=== PATIENT | female | born 1965 | race Caucasian/White ===

== ENCOUNTER 2020-02-09 09:27 | Inpatient (IN) | payer MEDICAID, OTHER ==
--- NOTE | 2020-02-09 09:44 | ED ---
Psych HPI - General Chief Complaint: Psychiatric Symptoms Stated Complaint: EPS eval Time Seen by Provider: 02/09/20 09:34 Source: patient, EMS, RN notes reviewed, old records reviewed Mode of arrival: EMS - History of Present Illness Initial Comments: 54-year-old female who was brought in by EMS after presenting to [facility] for help she talks about bad wiring her house and walking on the streets. She has demonstrated flight of ideas she denies any suicidal thought or ideation and alcohol or drugs. She is a smoker MD Complaint: other - Related Data Home Medications Medication Instructions Recorded Confirmed Acetaminophen Tab [Tylenol Tab] 500 - 1,000 mg PO Q6H PRN 02/09/20 02/09/20 Multivitamins, Thera [Multivitamin 1 tab PO DAILY 02/09/20 02/09/20 (formulary)] Allergies Allergy/AdvReac Type Severity Reaction Status Date / Time aspirin AdvReac Stomach Verified 02/09/20 10:13 pain Review of Systems ROS Statement: Those systems with pertinent positive or pertinent negative responses have been documented in the HPI. ROS Other: All systems not noted in ROS Statement are negative. Past Medical History Past Medical History: No Reported History History of Any Multi-Drug Resistant Organisms: None Reported Past Surgical History: Section Past Psychological History: No Psychological Hx Reported Smoking Status: Current every day smoker Past Alcohol Use History: None Reported Past Drug Use History: None Reported General Exam - General Exam Comments Initial Comments: this is a well-developed asthenic appearing female who is awake alert oriented 3 Limitations: no limitations General appearance: alert, in no apparent distress Head exam: Present: atraumatic, normocephalic, normal inspection Eye exam: Present: normal appearance, PERRL, EOMI. Absent: scleral icterus, conjunctival injection, periorbital swelling ENT exam: Present: normal exam, mucous membranes moist Neck exam: Present: normal inspection, full ROM. Absent: tenderness, meningismus, lymphadenopathy Respiratory exam: Present: normal lung sounds bilaterally. Absent: respiratory distress, wheezes, rales, rhonchi, stridor Cardiovascular Exam: Present: regular rate, normal rhythm, normal heart sounds. Absent: systolic murmur, diastolic murmur, rubs, gallop, clicks GI/Abdominal exam: Present: soft, normal bowel sounds. Absent: distended, tenderness, guarding, rebound, rigid Extremities exam: Present: normal inspection, full ROM, normal capillary refill. Absent: tenderness, pedal edema, joint swelling, calf tenderness Back exam: Present: normal inspection Neurological exam: Present: alert, oriented X3, CN II-XII intact Psychiatric exam: Present: flat affect Skin exam: Present: warm, dry, intact, normal color. Absent: rash Course Vital Signs 02/09/20 09:33 Temperature 98.5 F Pulse Rate 106 H Respiratory 18 Rate Blood Pressure 143/77 O2 Sat by Pulse 100 Oximetry Medical Decision Making - Medical Decision Making the patient was evaluated by psychiatric service and will be admitted - Lab Data Lab Results 02/09/20 Range/Units 09:48 Urine Opiates Screen Not Detected (NotDetected) Ur Oxycodone Screen Not Detected (NotDetected) Urine Methadone Screen Not Detected (NotDetected) Ur Propoxyphene Screen Not Detected (NotDetected) Ur Barbiturates Screen Not Detected (NotDetected) U Tricyclic Antidepress Not Detected (NotDetected) Ur Phencyclidine Scrn Not Detected (NotDetected) Ur Amphetamines Screen Not Detected (NotDetected) U Methamphetamines Scrn Not Detected (NotDetected) U Benzodiazepines Scrn Not Detected (NotDetected) Urine Cocaine Screen Not Detected (NotDetected) U Marijuana (THC) Screen Detected H (NotDetected) Disposition Clinical Impression: Acute psychosis Disposition: TRANSFER TO PSYCH HOSP/UNIT Condition: Fair Referrals: None,Stated [Primary Care Provider] - 1-2 days
[2020-02-09 10:07] LABS: Amphetamine Screen,Urine Not Detected (NotDetected); Barbiturate Screen,Urine Not Detected (NotDetected); Benzodiazepines Screen,Urine Not Detected (NotDetected); Cocaine Screen,Urine Not Detected (NotDetected); Methadone Screen, Urine Not Detected (NotDetected); Opiate Screen,Urine Not Detected (NotDetected); Oxycodone Screen, Urine Not Detected (NotDetected); Phencyclidine Screen,Urine Not Detected (NotDetected); Tricyclic Antidepressant,Urine Not Detected (NotDetected); Urn Cannabinoid Scrn Detected (NotDetected)
[2020-02-09] MEDS ORDERED: ZIPRASIDONE 20 MG VIAL IM PRN (15:20)
[2020-02-09] MEDS ORDERED: LORazepam 1 MG TAB PO PRN (15:20)
[2020-02-09] MEDS ORDERED: MAGNESIUM HYDROXIDE 2,400 MG/10 ML CUP PO PRN (15:20)
[2020-02-09] MEDS ORDERED: MAG HYDROX/AL HYDROX/SIMETH 30 ML CUP PO PRN (15:20)
[2020-02-09] MEDS ORDERED: ACETAMINOPHEN TAB 325 MG TAB PO PRN (15:20)
[2020-02-09] MEDS ORDERED: LORazepam 2 MG/ML INJ IM PRN (15:21)
[2020-02-09] MEDS: NICOTINE 14MG/24HR PATCH TRANSDERM SCH (19:12)
--- NOTE | 2020-02-10 03:45 | P.CONS ---
History of Present Illness - Reason for Consult Consult date: 02/10/20 - History of Present Illness The patient is a 54-year-old female who presented to the emergency room with flight of ideas along with suicidal ideation. The patient was admitted to the mental health unit where she was seen and evaluated. The patient seems to be internally preoccupied during the interview and was unable to provide a thorough history and answering questions appropriately. The patient however denied acti ve complaints. She denied chest pain, shortness of breath, fever, chills, nausea, vomiting, abdominal pain. Urine toxicology was positive for marijuana in the emergency room. Review of Systems Pertinent positives and negatives as discussed in HPI, a complete review of systems was performed and all other systems are negative. Past Medical History Past Medical History: No Reported History History of Any Multi-Drug Resistant Organisms: None Reported Past Surgical History: Section Past Psychological History: No Psychological Hx Reported Smoking Status: Current every day smoker Past Alcohol Use History: None Reported Past Drug Use History: None Reported Medications and Allergies Home Medications Medication Instructions Recorded Confirmed Type Acetaminophen Tab [Tylenol Tab] 500 - 1,000 mg PO Q6H PRN 02/09/20 02/09/20 History Multivitamins, Thera [Multivitamin 1 tab PO DAILY 02/09/20 02/09/20 History (formulary)] Allergies Allergy/AdvReac Type Severity Reaction Status Date / Time aspirin AdvReac Stomach Verified 02/09/20 10:13 pain Physical Exam Vitals: Vital Signs Temp Pulse Pulse Resp BP BP Pulse Ox 02/09/20 16:08 97.4 F L 88 18 119/99 94 L 02/09/20 09:33 98.5 F 106 H 18 143/77 100 Intake and Output 02/09/20 02/09/20 02/10/20 14:59 22:59 06:59 Other: Weight 63.503 kg 58.7 kg General: non toxic, no distress, appears at stated age, normal weight Derm: no unusual rashes/lesions no unusual ecchymoses, warm, dry Head: atraumatic, normocephalic, symmetric Eyes: EOMI, no lid lag, anicteric sclera, pupils equal round reactive to light ENT: Nose and ears atraumatic, no thrush, no pharyngeal erythema Neck: No thyromegaly, no cervical lymphadenopathy, trachea midline, supple Mouth: no lip lesion, mucus membranes moist Cardiovascular: S1S2 reg, no murmur, positive posterior tibial pulse bilateral, no edema, capillary refill less than 2 seconds Lungs: CTA bilateral, no rhonchi, no rales , no accessory muscle use Abdominal: soft, nontender to palpation, no guarding, no appreciable organomegaly, normal bowel sounds Ext: no gross muscle atrophy, muscle strength 5 out of 5 in all 4 extremities grossly, no contractures, Neuro: CN II-XI grossly intact, light touch intact all 4 extremities, finger to nose within normal limits, Psych: Alert, oriented, internally preoccupied with flight of ideas Results Labs: Abnormal Lab Results - Last 24 Hours (Table) 02/09/20 Range/Units 09:48 U Marijuana (THC) Screen Detected H (NotDetected) Assessment and Plan Plan: Psychosis -As per psychiatry Marijuana abuse -Advised patient on the importance of cessation Thank you for allowing us to participate in the care of this patient. We will f joanna peripherally. Do not hesitate to contact us with questions. Someone can be reached from the [facility] hospitalist group at all hours of the day at [phone].
[2020-02-10 07:45] LABS: Basophils # (A) 0.2 k/uL (0-0.2); Basophils % (A) 1 %; Eosinophils # (A) 0.2 k/uL (0-0.7); Eosinophils % (A) 1 %; HCT 50.9 % (34.0-46.0); HGB 16.5 gm/dL (11.4-16.0); Lymphocytes # (A) 3.1 k/uL (1.0-4.8); Lymphocytes % (A) 23 %; MCH 30.1 pg (25.0-35.0); MCHC 32.4 g/dL (31.0-37.0); MCV 92.7 fL (80.0-100.0); Mean Platelet Volume 6.4; Monocytes # (A) 0.6 k/uL (0-1.0); Monocytes % (A) 5 %; Neutrophils # (A) 9.2 k/uL (1.3-7.7); Neutrophils % (A) 69 %; Platelet Count 430 k/uL (150-450); RBC 5.49 m/uL (3.80-5.40); RDW 13.1 % (11.5-15.5); WBC 13.5 k/uL (3.8-10.6)
[2020-02-10 07:55] LABS: ALT 19 U/L (4-34); African American GFR (CKD) >90 (>60 ml/min/1.73 sqM); Albumin 4.7 g/dL (3.5-5.0); Anion Gap 10 mmol/L; Blood Urea Nitrogen 16 mg/dL (7-17); Calcium 9.7 mg/dL (8.4-10.2); Carbon Dioxide 26 mmol/L (22-30); Chloride 106 mmol/L (98-107); Cholesterol 173 mg/dL (<200); Glucose 82 mg/dL (74-99); HDL Cholesterol 38 mg/dL (40-60); LDL Cholesterol,Calculated 105 mg/dL (0-99); Non-African American GFR(CKD) >90 (>60 ml/min/1.73 sqM); Sodium 142 mmol/L (137-145); Total Protein 8.2 g/dL (6.3-8.2); Triglycerides 149 mg/dL (<150)
[2020-02-10 08:00] LABS: AST 32 U/L (14-36); Alkaline Phosphatase 91 U/L (38-126)
[2020-02-10] MEDS: NICOTINE 14MG/24HR PATCH TRANSDERM SCH (09:43)
[2020-02-10] MEDS: MULTIVITAMINS, THERA 1 EACH TAB PO SCH (09:43)
[2020-02-10] MEDS ORDERED: traZODone HCL 50 MG TAB PO PRN (10:19)
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
[2020-02-10 16:00] LABS: Hemoglobin A1C 5.3 % (4.0-6.0)
[2020-02-10] MEDS ORDERED: PALIPERIDONE 3 MG TAB.ER.24 PO SCH (21:00)
[2020-02-10 22:24] LABS: Appearance,Urine Cloudy (Clear); Bacteria,Urine Rare /hpf; Bilirubin,Urine Negative (Negative); Blood,Urine Moderate (Negative); Calcium Oxalate Crystals,Urine Occasional /hpf; Color,Urine Yellow; Glucose,Urine (UA) Negative (Negative); Hyaline Casts,Urine 3 /lpf (0-2); Ketones,Urine 1+ (Negative); Leukocyte Esterase,Urine Large (Negative); Mucus,Urine Moderate /hpf; Nitrite,Urine Negative (Negative); PH, Urine 5.5 (5.0-8.0); Protein,Urine Trace (Negative); RBC,Urine 6 /hpf (0-5); Specific Gravity,Urine 1.032 (1.001-1.035); Squamous Epithelial Cell,Urine 8 /hpf (0-4); Urobilinogen,Urine <2.0 mg/dL (<2.0); WBC,Urine 4 /hpf (0-5)
[2020-02-11] MEDS: NICOTINE 14MG/24HR PATCH TRANSDERM SCH (08:39)
[2020-02-11] MEDS: MULTIVITAMINS, THERA 1 EACH TAB PO SCH (08:39)
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
[2020-02-11] MEDS: SULFAMETHOX-TMP 800-160MG 1 EACH TAB PO SCH (20:59)
[2020-02-12] MEDS ORDERED: PALIPERIDONE 3 MG TAB.ER.24 PO SCH (09:00)
[2020-02-12] MEDS: NICOTINE 14MG/24HR PATCH TRANSDERM SCH (09:02)
[2020-02-12] MEDS: MULTIVITAMINS, THERA 1 EACH TAB PO SCH (09:02)
[2020-02-12] MEDS: SULFAMETHOX-TMP 800-160MG 1 EACH TAB PO SCH ×2 (09:02→20:37)
--- NOTE | 2020-02-12 09:41 | P.PN ---
Progress Note - Text Progress Note Date: 02/12/20 I reviewed medical records ,did interview patient and case was discussed in treatment team . PHYSICALLY :started Bactrim for UTI Slept 6-7 hours , yesterday participated in one group ACCORDING TO AT STAFF NOTE:((Pt required increased verbal prompting to engage in activity. "Is this a trick? I don't want to say anything wrong or bad. We were just talking about this in the [place] and now we're in group talking about this.)) TODAY VITALS: Temp:98.7P;87,P:17,BP:133/72 PATIENT TOOK INVEGA THIS MORNING INTERVAL : Patient was walking in [place] and agreed to follow me to office ,delusional ,illogical and bizarre saying "You do not hear me ,I am not giving permission to anyone here to contact my family because I am worried about your safety ,they can hurt you",compliant with medications and denies side-effects Mental status exam: Patient was wearing hospital gown, poor hygiene ,unkept hyperverbal , circumstatial ,loose of association,t,paranoia ,suspicious , ,guarded and evasive ,denies any hallucinations but seems responding to internal cue,endorses persecutory delusion ,tangential ,denies any suicidal or homicidal ideation,insight and judgment are impaired ASSESSMENT :PSYCHOSIS NOS PLAN: Patient continues to meet criteria for inpatient psychiatric admission for symptom stabilization ,increase Invega 6 mg ,encourage groups participation ,SW on board for collateral information and discharge planning
[2020-02-13] MEDS: NICOTINE 14MG/24HR PATCH TRANSDERM SCH (08:50)
[2020-02-13] MEDS: PALIPERIDONE 6 MG TAB.ER.24 PO SCH (08:51)
[2020-02-13] MEDS: SULFAMETHOX-TMP 800-160MG 1 EACH TAB PO SCH ×2 (08:51→21:22)
[2020-02-13] MEDS: MULTIVITAMINS, THERA 1 EACH TAB PO SCH (08:51)
--- NOTE | 2020-02-13 11:54 | P.PN ---
Subjective Progress Note Date: 02/13/20 Principal diagnosis: PSYCHOSIS NOS SUBJECTIVE:I was better off without medications", (when I asked her to elaborate on what was better off) she became defensive, counter attacked and said, "you just have a way of making people more anxious." OBJECTIVE: Vital signs:temp97.5, HR 114, resp 14, blood pressure 128/63 Labs:none recent Staff report: She has been going to groups and needs prompting to participate but followed the subject and was able to identify coping skills. She was noted by staff to be anxious depressed quiet and keeps to herself, minimal ADL'S is paranoid and refuses to let staff contact family, low energy, denies suicidal or homicidal ideas but does not want to talk in any deapth. Medications:Invega 6 mg daily plus prn's Mental status:The patient is oriented x4 gait and station are normal eye contact poor evidence of responding to voices or delusions:none but she is too vague and seems to be covering up issues behaviour: did not want the door to the office shut even though it does have a window and sat as far as possible insight:none, "my stuff is not stuff doctors would understand" cognitive funtion:hard to assess affect:tense appearance:minimal self care dressed in hospital gown ASSESSMENT:still very guarded doing poorly but no acute side effects or medical complaints PLAN:no change Objective - Vital Signs Vital signs: Vital Signs Temp 97.5 F L 02/13/20 00:22 Pulse 114 H 02/13/20 00:22 Resp 14 02/13/20 00:22 BP 128/63 02/13/20 00:22 Pulse Ox 97 02/12/20 06:00 Intake & Output 02/12/20 02/13/20 02/13/20 18:59 06:59 18:59 Weight 59.8 kg - Labs CBC & Chem 7: 02/10/20 07:27 02/10/20 07:27 Labs: Microbiology - Last 24 Hours (Table) 02/10/20 21:25 Urine Culture - Final Urine,Voided
[2020-02-14] MEDS: MULTIVITAMINS, THERA 1 EACH TAB PO SCH (08:52)
[2020-02-14] MEDS: NICOTINE 14MG/24HR PATCH TRANSDERM SCH (08:52)
[2020-02-14] MEDS: PALIPERIDONE 6 MG TAB.ER.24 PO SCH (08:52)
[2020-02-14] MEDS: SULFAMETHOX-TMP 800-160MG 1 EACH TAB PO SCH ×2 (08:52→22:02)
--- NOTE | 2020-02-14 14:21 | P.PN ---
Subjective Progress Note Date: 02/14/20 Principal diagnosis: PSYCHOSIS NOS SUBJECTIVE:She is so vague that it is hard to be sure but she is complaining that the invega causes her to be more anxiious around people and tired at the same time. OBJECTIVE: Vital signs: temp 98.5 resp 16 heart rate 84 blood pressure 112/63 Labs:none recent STAFF REPORT:group report: she does not attend on the unit they notice her as bizarre suspicious, anxious soft spoken but redirectable but withdrawn from peers. MENTAL STATUS: Appearance: basic ADL'S adequate Gait and station:normal Speech:normal in rate and volume Eye contact: good Behavior: cooperative Affect:flat No evidence or acknowlegment of voices or delusions Orientation: good to person place and time MEDICATIONS:invega 6 mg daily ASSESSMENT:patient is cooperative and still too anxious and confused. She might be having akathesia but sits for quite a while in my office without moving, in fact she almost has decreased psychomotor activity PLAN: no change but if she continues to complain of "restlessness and anxiety" we might have to change the invega. Objective - Vital Signs Vital signs: Vital Signs Temp 98.5 F 02/14/20 13:05 Pulse 84 02/14/20 05:59 Resp 16 02/14/20 05:59 BP 112/63 02/14/20 05:59 Pulse Ox 95 02/14/20 05:59 Intake & Output 02/13/20 02/14/20 02/14/20 19:59 06:59 18:59 Weight 59.8 kg - Labs CBC & Chem 7: 02/10/20 07:27 02/10/20 07:27
[2020-02-15] MEDS: SULFAMETHOX-TMP 800-160MG 1 EACH TAB PO SCH ×2 (08:30→22:02)
[2020-02-15] MEDS: PALIPERIDONE 6 MG TAB.ER.24 PO SCH (08:30)
[2020-02-15] MEDS: NICOTINE 14MG/24HR PATCH TRANSDERM SCH (08:30)
[2020-02-15] MEDS: MULTIVITAMINS, THERA 1 EACH TAB PO SCH (08:30)
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
[2020-02-16 04:29] VITALS: RESP 16
[2020-02-16] MEDS: NICOTINE 14MG/24HR PATCH TRANSDERM SCH (08:44)
[2020-02-16] MEDS: SULFAMETHOX-TMP 800-160MG 1 EACH TAB PO SCH ×2 (08:44→21:23)
[2020-02-16] MEDS: MULTIVITAMINS, THERA 1 EACH TAB PO SCH (08:44)
[2020-02-16] MEDS: PALIPERIDONE 6 MG TAB.ER.24 PO SCH (08:44)
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
[2020-02-17] MEDS: NICOTINE 14MG/24HR PATCH TRANSDERM SCH (09:00)
[2020-02-17] MEDS: SULFAMETHOX-TMP 800-160MG 1 EACH TAB PO SCH ×2 (09:00→21:02)
[2020-02-17] MEDS: MULTIVITAMINS, THERA 1 EACH TAB PO SCH (09:00)
[2020-02-17] MEDS: PALIPERIDONE 6 MG TAB.ER.24 PO SCH (09:01)
--- NOTE | 2020-02-17 11:19 | P.PN ---
Progress Note - Text Progress Note Date: 02/17/20 Clinical Problems: Unspecified psychotic disorder, rule out depressive disorder, rule out unspecified major neurocognitive disorder, rule out schizoaffective disorder Interim history: I reviewed the medical record, interviewed the patient and discussed her treatment and treatment plan during team meeting. She signed a three-day notice yesterday and talked about her desire to be discharged. During our interview, she again refuse to sign a release for information to speak with her nephew. However, after interview the oil well service unit operator approached her with the same request and she signed a release of information form. She denied conflict her concerns with her nephew. She would not talk about to believe she expressed of admission i.e. he was poisoning her. mechanical maintenance worker plans to speak with her nephew to gain collateral information and to complete discharge planning. Mental status exam: She presented as a thin elderly woman who looked older than her stated age. Her hair was long disheveled. She has very poor dentition. She made eye contact and appeared to attend to the interview. She had slight psychomotor retardation but no abnormal movements. Her speech was spontaneous, soft with decreased rhythm. Her affect was anxious and suspicious. She denied suicidal ideation and wishes. She denied homicidal ideation. She did not express clear ideas reference, paranoid ideation or delusions. Her thinking was very concrete but her associations were goal-directed. She denied hallucinations did not appear to responding to internal stimuli. Assessment: She is less guarded, suspicious and paranoid than on admission. Plan: Continue inpatient treatment until at least the nephrology social worker is able to speak with her nephew and obtain some collateral information. If there are no concerns about safety then we can discharge her home. Encourage continued compliance with Invega 6 mg daily. Social work to coordinate aftercare services most likely through community mental health.
[2020-02-17 18:47] VITALS: TEMP 98.2
[2020-02-18] MEDS ORDERED: PALIPERIDONE 3 MG TAB.ER.24 PO SCH (09:00)
[2020-02-18] MEDS: NICOTINE 14MG/24HR PATCH TRANSDERM SCH (10:08)
[2020-02-18] MEDS: MULTIVITAMINS, THERA 1 EACH TAB PO SCH (10:09)
[2020-02-18] MEDS: SULFAMETHOX-TMP 800-160MG 1 EACH TAB PO SCH (10:19)
--- NOTE | 2020-02-18 11:34 | P.PN ---
Progress Note - Text Progress Note Date: 02/18/20 Clinical Problems: Unspecified psychotic disorder, rule out depressive disorder, rule out unspecified major neurocognitive disorder, rule out schizoaffective disorder Interim history: I reviewed the medical record, interviewed the patient and discuss her treatment and treatment plan during team meeting. textile pin worker was able to speak with her nephew yesterday. He stated that he filed a missing persons report because Dodie F the house and he was unable to locate her over the last 8 days. After she left the house he cleaned her room and thought he had discovered bedbugs. He has arranged to have the house fumigated today. Dodie appeared surprised when I relayed the social science research assistant's conversation with her nephew. She alleged that she did not believe her nephew cared for her and wanted her to move out of the house. She then talked about her belief that her nephew was trying to harm her. She described a delusional belief that there was a contamination and heating ducts of house that was affecting her thinking and her health. We talked about her noncompliance with paliperidone. She expressed concern about being able to pay for the medication when she leaves and also complained of side effects with the 6 mg dose. We discussed options and she agreed to take risperidone at a "lower dose". She does not attend therapeutic groups and activities. She does not interact with peers. She spends most for time alone in her room. Mental status exam: She presented as a thin and frail-appearing elderly woman who looks older than his stated age. She had long care that she had combed today. She is wearing casual street clothes. She made eye contact and appeared to attend to the interview. Her affect was blunted but bright and expressive. Her speech was spontaneous. She expressed suicidal homicidal ideation. She described a fixed paranoid delusional belief as described above. She did not appear paranoid or suspicious during our encounter. She denied experiencing auditory hallucinations and didn't appear to be responding to internal stimuli. Assessment: She is less paranoid than on admission and is more open about discussing her paranoid delusional beliefs. Plan: Discharge on 02/19/2020 after her home is fumigated for bedbugs discontinue paliperidone 6 mg daily and began risperidone 1 mg at bedtime and titrated according to clinical response and tolerance. Continue trazodone 50 mg at bedtime when necessary for sleep. textile pin worker to coordinate discharge and aftercare. Encourage participation in therapeutic groups and activities. Evaluate clinical status response to treatment daily basis.
[2020-02-18] MEDS ORDERED: risperiDONE 1 MG TAB PO SCH (21:00)
[2020-02-19 06:28] VITALS: BP 103/54; PULSE 62
[2020-02-19] MEDS: MULTIVITAMINS, THERA 1 EACH TAB PO SCH (08:51)
[2020-02-19] MEDS: NICOTINE 14MG/24HR PATCH TRANSDERM SCH (08:51)
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
[2020-02-19 12:59] VITALS: BMI 24.0
== END 2020-02-19 15:30 | disposition home or self-care (01) | DRG 897 ==
LOC: EC 09:27 → 3MHU 15:02
PROVIDERS: ADMIT Psychiatry & Neurology Psychiatry; ATTEND Psychiatry & Neurology Psychiatry
DX: F12.950 Cannabis use, unspecified with psychotic disorder with delusions (principal); N39.0 Urinary tract infection, site not specified; F17.200 Nicotine dependence, unspecified, uncomplicated; Z88.8 Allergy status to other drugs, medicaments and biological substances; Z98.891 History of uterine scar from previous surgery; Z56.0 Unemployment, unspecified; Z91.19 Patient's noncompliance with other medical treatment and regimen; Z91.5 Personal history of self-harm
CPT/HCPCS: 80053; 80061; 80306; 81001; 82075; 83036; 84443; 85025; 87086; 99285

== ENCOUNTER 2020-04-04 15:30 | Inpatient (IN) | payer MEDICAID, OTHER ==
[2020-04-04 18:09] LABS: Amphetamine Screen,Urine Not Detected (NotDetected); Barbiturate Screen,Urine Not Detected (NotDetected); Benzodiazepines Screen,Urine Not Detected (NotDetected); Cocaine Screen,Urine Not Detected (NotDetected); Methadone Screen, Urine Not Detected (NotDetected); Opiate Screen,Urine Not Detected (NotDetected); Oxycodone Screen, Urine Not Detected (NotDetected); Phencyclidine Screen,Urine Not Detected (NotDetected); Tricyclic Antidepressant,Urine Not Detected (NotDetected); Urn Cannabinoid Scrn Not Detected (NotDetected)
[2020-04-04] MEDS ORDERED: ACETAMINOPHEN TAB 500 MG TAB PO PRN (18:43)
[2020-04-04] MEDS ORDERED: traZODone HCL 50 MG TAB PO PRN (18:43)
[2020-04-04] MEDS ORDERED: LORazepam 1 MG TAB PO PRN (18:44)
[2020-04-04] MEDS ORDERED: MAGNESIUM HYDROXIDE 2,400 MG/10 ML CUP PO PRN (18:44)
[2020-04-04] MEDS ORDERED: MAG HYDROX/AL HYDROX/SIMETH 30 ML CUP PO PRN (18:44)
[2020-04-04] MEDS ORDERED: haloperidoL 5 MG TAB PO PRN (18:45)
[2020-04-04] MEDS ORDERED: LORazepam 2 MG/ML INJ IM PRN (18:45)
[2020-04-04] MEDS ORDERED: HALOPERIDOL LACTATE 5 MG/ML 1 ML VIAL IM PRN (18:45)
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
[2020-04-04] MEDS ORDERED: risperiDONE 1 MG TAB PO SCH (21:00)
[2020-04-05] MEDS: MULTIVITAMINS, THERA 1 EACH TAB PO SCH (08:32)
[2020-04-05] MEDS: NICOTINE 14MG/24HR PATCH TRANSDERM SCH ×2 (08:32)
[2020-04-05 10:50] LABS: Basophils # (A) 0.1 k/uL (0-0.2); Basophils % (A) 1 %; Eosinophils # (A) 0.1 k/uL (0-0.7); Eosinophils % (A) 1 %; HCT 43.6 % (34.0-46.0); HGB 14.6 gm/dL (11.4-16.0); Lymphocytes # (A) 1.9 k/uL (1.0-4.8); Lymphocytes % (A) 17 %; MCH 29.8 pg (25.0-35.0); MCHC 33.6 g/dL (31.0-37.0); MCV 88.8 fL (80.0-100.0); Mean Platelet Volume 6.7; Monocytes # (A) 0.6 k/uL (0-1.0); Monocytes % (A) 5 %; Neutrophils # (A) 8.5 k/uL (1.3-7.7); Neutrophils % (A) 76 %; Platelet Count 397 k/uL (150-450); RBC 4.91 m/uL (3.80-5.40); RDW 12.7 % (11.5-15.5); WBC 11.2 k/uL (3.8-10.6)
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
[2020-04-05 11:15] LABS: ALT 16 U/L (4-34); AST 20 U/L (14-36); African American GFR (CKD) >90 (>60 ml/min/1.73 sqM); Albumin 4.4 g/dL (3.5-5.0); Alkaline Phosphatase 86 U/L (38-126); Anion Gap 7 mmol/L; Blood Urea Nitrogen 18 mg/dL (7-17); Calcium 9.8 mg/dL (8.4-10.2); Carbon Dioxide 27 mmol/L (22-30); Chloride 107 mmol/L (98-107); Cholesterol 166 mg/dL (<200); Glucose 93 mg/dL (74-99); HDL Cholesterol 42 mg/dL (40-60); LDL Cholesterol,Calculated 103 mg/dL (0-99); Non-African American GFR(CKD) >90 (>60 ml/min/1.73 sqM); Potassium 4.6 mmol/L (3.5-5.1); Sodium 141 mmol/L (137-145); Total Bilirubin 0.6 mg/dL (0.2-1.3); Total Protein 7.6 g/dL (6.3-8.2); Triglycerides 103 mg/dL (<150)
[2020-04-05] MEDS: risperiDONE 2 MG TAB PO SCH (21:27)
[2020-04-06] MEDS: NICOTINE 14MG/24HR PATCH TRANSDERM SCH (08:36)
[2020-04-06] MEDS: MULTIVITAMINS, THERA 1 EACH TAB PO SCH (08:36)
--- NOTE | 2020-04-06 11:53 | P.PN ---
Progress Note - Text Progress Note Date: 04/06/20 Clinical Problems: Unspecified psychotic disorder, unspecified neurocognitive disorder, rule out schizophrenia history of cannabis use, tobacco use Interim history: I reviewed the medical record, interviewed the patient and discussed her treatment and treatment plan during team meeting. She was apologetic and perseverative during the interview. She apologizes for the "trouble I caused." She perseverated on where she will live after she is discharged and appeared to be under the impression that we are reaching for her to live with her children. I explained that yesterday I talked to her about her children because we would like to speak with them to obtain additional information about her and their relationship. She did not know her children's telephone numbers and did not know their home address. She did not know the names some of her grandchildren. I clarified that her options; she could return to live with her nephew or to go to a homeless residential. Given this option she replied that she wouldn't refer to return to live with her nephew. She did not voluntarily express thoughts or beliefs about mistreatment, abuse or being harmed or poisoned. She declined Risperdal Consta considerably oral doses. Mental status exam: She presented as a thin casually groomed 54-year-old female who looked older than stated age. She made eye contact and appeared to attend to interview. She had a blunted facial expression. She was alert and oriented to person, place and time. She had psychomotor retardation but no abnormal movements. Her speech was spontaneous with normal rate and rhythm. Her affect was blunted but stable and appropriate. She denied suicidal ideation or wishes. She denied feeling hopeless and helpless or worthless. She ruminated about living with her nephew, having no income, not having a telephone, not being able to keep her nephew's telephone, not having transportation to keep her appointments and not knowing how to reach her children. She did not express ideas reference or paranoid ideation. She did not express magical ideation or delusional thoughts. Her thinking was very concrete and perseverative. She denied hallucinations and did not appear to be responding to internal stimuli. Assessment: She is less suspicious and confused and on admission. I suspect that this may be a neurocognitive disorder. Plan: Continue inpatient treatment. Safety precautions. Continue risperidone 2 mg at bedtime and titrated according to clinical response and tolerance. Trazodone 50 mg at bedtime when necessary for sleep. bag shop worker attempting to contact her nephew and obtain information to speak with her children. The plan is to her to return to live with her nephew. Encouraged continued participation in therapeutic groups and activities. Evaluate clinical status response to treatment daily basis.
[2020-04-06] MEDS: risperiDONE 2 MG TAB PO SCH (21:13)
[2020-04-07] MEDS: NICOTINE 14MG/24HR PATCH TRANSDERM SCH (08:59)
[2020-04-07] MEDS: MULTIVITAMINS, THERA 1 EACH TAB PO SCH (08:59)
--- NOTE | 2020-04-07 11:29 | P.PN ---
Progress Note - Text Progress Note Date: 04/07/20 Clinical Problems: Unspecified psychotic disorder, unspecified neurocognitive disorder, rule out schizophrenia history of cannabis use, tobacco use Interim history: I reviewed the medical record, interviewed the patient and discussed her treatment and treatment plan during team meeting. Dodie again expressed concerns about living with her nephew but recognizes that otherwise she has no options. She perseverated about the homes heating system; again talking about her concerns about the safety of the heating system and her nephew's refusal to have a heating and cooling inspection. plate put in worker obtained consent and spoke with her nephew yesterday. He expressed concerns about her medication compliance until geriatric social work professor that she only took her prescribed medication "for couple days." He also complained that she would not let him turn on the furnace. She has cardboard over the vents because she was thinking something was "coming out of the vents." He had to buy electric heaters to warm the house and complained about the exorbitant electric bill. Dodie talked around the issues brought up during the geriatric social work professor's conversation with her nephew. She would not admit that she believes that something is "coming out" of the furnace vents. She talked about her nephew wanting to move something but she thought it was too much (I suspect she was talking about the settings of the thermostat). She again declined Risperdal Consta. Mental status exam: She presented as a thin casually groomed 54-year-old female who looked older than stated age. She made eye contact and appeared to attend to interview. She had a blunted facial expression. She was alert and oriented to person, place and time. She had psychomotor retardation but no abnormal movements. Her speech was spontaneous with normal rate and rhythm. Her affect was blunted but stable and appropriate. She denied suicidal ideation or wishes. She denied feeling hopeless and helpless or worthless. She continued to ruminated about living with her nephew, having no income, not having a telephone, not being able to keep her nephew's telephone, not having transportation to keep her appointments and not knowing how to reach her children. She did not express ideas reference but remains paranoid about the homes furnace and heating system. She did not express clear paranoid delusional beliefs. Her thinking was very concrete and perseverative. She denied hallucinations and did not appear to be responding to internal stimuli. Assessment: She is less suspicious and confused and on admission. I suspect that her paranoia and paranoid beliefs may be related to an underlying neurocognitive disorder. Plan: Continue inpatient treatment. Safety precautions. Continue risperidone 2 mg at bedtime and titrated according to clinical response and tolerance. Trazodone 50 mg at bedtime when necessary for sleep. I would consider a memory enhancing agent if a little more confident and her compliance. Encouraged continued participation in therapeutic groups and activities. Evaluate clinical status response to treatment daily basis.
[2020-04-07] MEDS: risperiDONE 2 MG TAB PO SCH (20:52)
[2020-04-07 23:02] LABS: Amorphous Sediment,Urine Rare /hpf; Appearance,Urine Cloudy (Clear); Bilirubin,Urine Negative (Negative); Blood,Urine Small (Negative); Color,Urine Light Yellow; Glucose,Urine (UA) Negative (Negative); Ketones,Urine Negative (Negative); Leukocyte Esterase,Urine Small (Negative); Nitrite,Urine Negative (Negative); PH, Urine 6.5 (5.0-8.0); Protein,Urine Negative (Negative); RBC,Urine 2 /hpf (0-5); Specific Gravity,Urine 1.016 (1.001-1.035); Squamous Epithelial Cell,Urine <1 /hpf (0-4); Urobilinogen,Urine <2.0 mg/dL (<2.0); WBC,Urine 1 /hpf (0-5)
[2020-04-08] MEDS: NICOTINE 14MG/24HR PATCH TRANSDERM SCH (08:47)
[2020-04-08] MEDS: MULTIVITAMINS, THERA 1 EACH TAB PO SCH (08:47)
--- NOTE | 2020-04-08 09:28 | P.PN ---
Progress Note - Text Progress Note Date: 04/08/20 Clinical Problems: Unspecified psychotic disorder, unspecified neurocognitive disorder, rule out schizophrenia history of cannabis use, tobacco use Interim history: I reviewed the medical record and interviewed the patient. She remains concerned about returning to her nephew's house but recognizes that she has no other option. She gave several excuses for not being able to contact her children, apply for Social Security or make her community mental health appointments. She did not perseverate about the heating system at her nephew's house. He declined a trial of a memory enhancing agent. I recommended a trial of donepezil. She became frightened when I we discussed the possible side effects of bradycardia stomach or bowel bleeding or seizures. Mental status exam: She presented as a thin casually groomed 54-year-old female who looked older than stated age. She made eye contact and appeared to attend to interview. She had a bright facial expression. She was alert and oriented to person, place and time. She had psychomotor retardation but no abnormal movements. Her speech was spontaneous with normal rate and rhythm. Her affect was blunted but stable and appropriate. She denied suicidal ideation or wishes. She denied feeling hopeless and helpless or worthless. She was perseverative and indecisive. She did not express ideas reference and appears less paranoid about the homes furnace and heating system. She did not express clear paranoid delusional beliefs. Her thinking was very concrete and perseverative. She denied hallucinations and did not appear to be responding to internal stimuli. Assessment: She is less suspicious and confused and on admission. I suspect that her paranoia and paranoid beliefs may be related to an underlying neurocognitive disorder. Plan: Continue inpatient treatment. Safety precautions. Continue risperidone 2 mg at bedtime and titrated according to clinical response and tolerance. Trazodone 50 mg at bedtime when necessary for sleep. Continue discussion about a trial of a memory enhancing agent. Encouraged continued participation in therapeutic groups and activities. Evaluate clinical status response to treatment daily basis.
[2020-04-08] MEDS: risperiDONE 2 MG TAB PO SCH (19:49)
[2020-04-09] MEDS: MULTIVITAMINS, THERA 1 EACH TAB PO SCH (08:50)
[2020-04-09] MEDS: NICOTINE 14MG/24HR PATCH TRANSDERM SCH (08:51)
[2020-04-09] MEDS ORDERED: INFLUENZA VACCINE (6 MOS+) 60 MCG/0.5 ML SYRINGE IM ONE (10:33)
[2020-04-09] MEDS ORDERED: PNEUMOCOCCAL VACC-PNEUMOVAX 23 25 MCG/0.5 ML VIAL IM ONE (10:33)
--- NOTE | 2020-04-09 17:36 | PN ---
PROGRESS NOTE DATE OF SERVICE: 04/09/2020 CHIEF COMPLAINT: The patient had confused thoughts. She believed others were doing her harm. She was in a highly distressed state. She had a recent hospitalization. INTERVAL HISTORY: Patient has been doing fair. She had a quiet day yesterday. She comes out on the unit. She will interact with a few peers. She attended all groups and was appropriate in group. She does tend to be reserved in her manner. She continues to be down in her mood and is quite distressed about things that she perceives going on in her life in the community. She is troubled with her home situation. She has been cooperative with care. When I talked to her about the possibility that some of this might be paranoid thinking, she tended to minimize this and said she would just talk with Dr. De Santiago, when he returns. She didn't really offer much in terms of hos she sees her current situation or whether medications are helping. Mosatly she made vague statements without much content. She has been compliant with her medications and reports no issues with the medications. MENTAL STATUS: Patient sat with some restlessness. She gave fairly eye contact. She didn't say much and often gave vague responses to most questions. Here affect was flat. She had a quiet manner. Mood was down thougyh it was difficult to get a sense of how distressed she may be feeling. It was difficult to assess for thought disorder or thoughts of harm. She did not make an effort to answer formal cognitive questions. . ASSESSMENT: I will continue the current diagnosis and treatment plan. I will continue psychotropic medications the same, namely Risperdal 2 mg at bedtime. The patient is also on trazodone p.r.n., though she says that she does not take that medication as she does not need it. I reviewed issues relating to the medication including indications, potential side effects and issues related to metabolics and movement disorder. I also reviewed issues relating to her petition process. We will focus on stabilization and discharge planning. PEYTON / YAHIR: [id number] / MTDD
[2020-04-09] MEDS: risperiDONE 2 MG TAB PO SCH (21:02)
[2020-04-10] MEDS: NICOTINE 14MG/24HR PATCH TRANSDERM SCH (08:38)
[2020-04-10] MEDS: MULTIVITAMINS, THERA 1 EACH TAB PO SCH (08:38)
--- NOTE | 2020-04-10 18:02 | PN ---
PROGRESS NOTE DATE OF SERVICE: 04/10/2020. CHIEF COMPLAINT: The patient had confused thought. She believed others were doing her harm. She was in a highly distressed state. She had a recent psychiatric hospitalization. INTERVAL HISTORY: Patient has been doing fair. Overall she seems to be at about the same point she was yesterday. She had a quiet day yesterday. She comes out on the unit. She will wander about. It is not really clear if she interacts much with others. For the most part, she presents in a quiet manner. She attends groups and is appropriate in groups. She has been compliant with care and continues on her Risperdal. She said that she slept well last night. Today, she has been up. Overall, she is doing about the same. It is noted that she asked why she was in the hospital and that it was her expectation that she was only coming to the hospital for some kind of a test and then was to go home. To some extent, she seemed baffled about her situation. Even when I asked questions such as how she slept last night, she would respond with a short answer suggesting that everything was okay and that there really were no issues to be concerned about. When I reviewed with the patient some of Dr. De Santiago's documentation toward the end of the week, her only comment was that she would talk about this with Dr. De Santiago tomorrow. She voiced no complaints or concerns. She appears to tolerate her psychotropic medication. MENTAL STATUS: Patient sat in a very quiet manner. She did not show much extraneous movement. She did not show much facial expression. Eye contact at best was fair. She answered questions with brief responses. For the most part, she tended to minimize any issues or concerns. Her affect was flat. Mood depressed. It was difficult to assess her level of distress. There was no outward evidence of thought disorder, though she did have a very hesitant manner in answering questions. It was difficult to assess for thoughts of harm. She was oriented to circumstances and surroundings. ASSESSMENT: I will continue the current diagnosis and treatment plan. I will continue her psychotropic medication the same. I briefly discussed the medication issues with the patient, though it was clear she was not too inclined to engage in that conversation. We will focus on stabilization and discharge planning. MMODL / IJN: [id number] /
[2020-04-10] MEDS: risperiDONE 2 MG TAB PO SCH (20:49)
[2020-04-11 07:10] VITALS: BP 105/65; PULSE 102; RESP 14; TEMP 97.4
[2020-04-11] MEDS: NICOTINE 14MG/24HR PATCH TRANSDERM SCH (08:34)
[2020-04-11] MEDS: MULTIVITAMINS, THERA 1 EACH TAB PO SCH (08:35)
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
== END 2020-04-11 11:43 | disposition home or self-care (01) | DRG 885 ==
LOC: EC 15:30 → 3MHU 18:31
PROVIDERS: ADMIT Psychiatry & Neurology Psychiatry; ATTEND Psychiatry & Neurology Psychiatry
PROC: 3E0234Z Introduction of Serum, Toxoid and Vaccine into Muscle, Percutaneous Approach (ICD-10-PCS; principal; 2020-04-09)
PROC: 3E02340 Introduction of Influenza Vaccine into Muscle, Percutaneous Approach (ICD-10-PCS; principal; 2020-04-09)
DX: F22 Delusional disorders (principal); F17.210 Nicotine dependence, cigarettes, uncomplicated; Z91.128 Patient's intentional underdosing of medication regimen for other reason; R41.9 Unspecified symptoms and signs involving cognitive functions and awareness; T50.906A Underdosing of unspecified drugs, medicaments and biological substances, initial encounter; Z23 Encounter for immunization; Z20.828 Contact with and (suspected) exposure to other viral communicable diseases; Z71.6 Tobacco abuse counseling; Z79.899 Other long term (current) drug therapy; Z63.8 Other specified problems related to primary support group; Z86.2 Personal history of diseases of the blood and blood-forming organs and certain disorders involving the immune mechanism; Z98.891 History of uterine scar from previous surgery; Z88.6 Allergy status to analgesic agent; Z91.030 Bee allergy status; Y63.6 Underdosing and nonadministration of necessary drug, medicament or biological substance
CPT/HCPCS: 80053; 80061; 80306; 81001; 82075; 83036; 84443; 85025; 87635; 90686; 90732; 99285